=== PATIENT | male | born 1980 | race Caucasian/White ===

== ENCOUNTER 2017-09-13 11:27 | Emergency (ER) | payer OTHER ==
[~2017-09-13] VITALS: Ht 180.3 cm; Wt 101.2 kg
[~2017-09-13 11:27] MED LIST: PREDNISONE 20 M20 M1 PO
[2017-09-13 12:04] LABS: ABSOLUTE BASOPHILS 0.1 thou/uL (0.0-0.2); ABSOLUTE EOSINOPHILS 0.1 thou/uL (0.0-0.7); ABSOLUTE LYMPHOCYTES 2.1 thou/uL (0.8-5.3); ABSOLUTE MONOCYTES 0.4 thou/uL (0.0-1.2); ABSOLUTE NEUTROPHILS 3.3 thou/uL (1.6-8.1); BASOPHILS 1.5 %; EOSINOPHILS 2.5 %; HEMATOCRIT 47.1 % (42.0-52.0); LYMPHOCYTES 34.6 %; MCH 29.2 pg (26.0-34.0); MCV 85.8 fL (80.0-100.0); MONOCYTES 6.9 %; MPV 7.2 fl. (7.2-11.1); NUCLEATED RBCS 0 /100WBC; PLATELET COUNT* 241 thou/uL (150-400); POLYS 54.5 %; RBC 5.49 mil/uL (4.50-6.00); RDW-CV 13.1 % (10.5-14.5)
[2017-09-13 12:26] LABS: ALBUMIN 3.9 g/dL (3.4-5.0); ALKALINE PHOSPHATASE 67 U/L (46-116); ANION GAP 6 mmol/L (7-16); BUN 19 mg/dL (7-18); CALCIUM 8.6 mg/dL (8.5-10.1); CHLORIDE 103 mmol/L (98-107); CO2 33 mmol/L (21-32); GLUCOSE 84 mg/dL (70-99); MAGNESIUM 2.1 mg/dL (1.8-2.4); POTASSIUM 3.8 mmol/L (3.5-5.1); SGOT 19 U/L (15-37); SGPT 32 U/L (30-65); SODIUM 142 mmol/L (136-145); TOTAL BILIRUBIN 0.3 mg/dL (<0.1-1.0); TOTAL PROTEIN 7.8 g/dL (6.4-8.2); TROPONIN-I LEVEL <0.06 ng/mL (<0.06)
[2017-09-13 13:16] VITALS: BP 128/47
--- NOTE | 2017-09-13 17:22 | EKG ---
[place] [address] ELECTROCARDIOGRAM REPORT Name: EV ALEJANDRO Room: [facility]#: [id number] Admission: 09/13/17 Attend Phys: Discharge: 09/13/17 Date of : 80 Report #: [id number] THIS REPORT FOR: //name// [facility] ED Test Date: 2017-09-13 Test Time: 11:38:01 Pat Name: EV ALEJANDRO Department: Room: Gender: M Team Lead: : 1980 Requested By: Alex Alcantara Order Number: [id number] MD: Chato Durham Measurements Intervals Thayer Rate: 84 P: 67 FL: 149 QRS: 41 QRSD: 96 T: 46 QT: 356 QTc: 421 Interpretive Statements Sinus rhythm No previous ECG available for comparison Electronically Signed On 09-13-2017 17:22:39 [employer]NAGER by Chato Durham [email or web address] <ELECTRONICALLY SIGNED> By: Chato Durham MD, [facility] 09/13/17 1722 [id number] Chato Durham MD, FACC /EPI
== END 2017-09-13 13:16 | disposition home or self-care (01) ==
LOC: M.ERS 11:27
PROVIDERS: Physician Assistant
DX: R00.2 Palpitations (principal); R94.6 Abnormal results of thyroid function studies; Z90.49 Acquired absence of other specified parts of digestive tract

== ENCOUNTER 2018-12-05 18:32 | Emergency (ER) | payer OTHER ==
[~2018-12-05] VITALS: Ht 180.3 cm; Wt 95.3 kg
[2018-12-05] MEDS ORDERED: NORCO 5-325 TA1 EACH PO (19:53)
[2018-12-05] MEDS ORDERED: IBUPROFEN 800800 MG PO (19:53)
[2018-12-05 20:24] VITALS: BP 125/90
== END 2018-12-05 20:25 | disposition home or self-care (01) ==
LOC: M.ERS 18:32
DX: M53.3 Sacrococcygeal disorders, not elsewhere classified (principal); Z90.49 Acquired absence of other specified parts of digestive tract